=== PATIENT | female | born 1950 | race Caucasian/White ===

== ENCOUNTER → 2017-10-04 | Outpatient (CLI) | payer BC | LOC: RAD 10:12 | PROVIDERS: ATTEND Registered Nurse | DX: G20 Parkinson's disease (principal); R13.10 Dysphagia, unspecified | CPT/HCPCS: 74230 ==

== ENCOUNTER → 2017-10-05 | Outpatient (CLI) | payer BC ==
[~2017-10-05] MED LIST: GADOBUTROL 7.5 MMOL/7.5 ML VIAL ONE
== END | disposition home or self-care (01) ==
LOC: CFH 09:45
PROVIDERS: ATTEND Registered Nurse
DX: G20 Parkinson's disease (principal); M48.02 Spinal stenosis, cervical region; M54.2 Cervicalgia
CPT/HCPCS: 70553; 72156; 82565; A9585

== ENCOUNTER → 2017-12-20 | Outpatient (CLI) | payer BC | END | disposition home or self-care (01) | LOC: CFH 15:59 | PROVIDERS: ATTEND Internal Medicine | DX: R63.4 Abnormal weight loss (principal); Z72.0 Tobacco use | CPT/HCPCS: 71046 ==

== ENCOUNTER → 2018-01-05 | Outpatient (CLI) | payer BC | END | disposition home or self-care (01) | LOC: CFH 14:05 | PROVIDERS: ATTEND Orthopaedic Surgery | DX: M47.892 Other spondylosis, cervical region (principal); M85.88 Other specified disorders of bone density and structure, other site | CPT/HCPCS: 72050 ==

== ENCOUNTER → 2018-04-19 | Outpatient (CLI) | payer BC | END | disposition home or self-care (01) | LOC: CFH 13:23 | PROVIDERS: ATTEND Psychiatry & Neurology Neurology | DX: I65.02 Occlusion and stenosis of left vertebral artery (principal); I77.1 Stricture of artery; I63.9 Cerebral infarction, unspecified | CPT/HCPCS: 70544; 70549; 82565; A9585 ==

== ENCOUNTER 2019-09-01 09:42 | Emergency (ER) | payer BC, MEDICARE ==
[~2019-09-01] VITALS: Ht 170.2 cm; Wt 67.0 kg
[~2019-09-01 09:42] MED LIST changes: +ACET325T26 PO; +BACL20TA PO; +CARB1TAB46 PO; +DOCU100C33 PO; +DOXE10CA PO; +ENAL5TAB PO; -GADOBUTROL 7.5 MMOL/7.5 ML VIAL ONE; +IPRA3AMP30 NPPB; +MELA3TAB56 PO; +POLY17PO5 PO; +SAFI50TA PO
[2019-09-01 09:45] VITALS: BP 113/70
[2019-09-01 10:57] LABS: BASOPHILS # (AUTO) 0.03 x10^3/uL (0-0.1); BASOPHILS % (AUTO) 1 % (0-1); EOSINOPHILS # (AUTO) 0.07 x10^3/uL (0-0.4); EOSINOPHILS % (AUTO) 1 % (1-7); LYMPHOCYTES # (AUTO) 1.27 x10^3/uL (1-3.4); LYMPHOCYTES % (AUTO) 25 % (22-44); MD NO; MEAN CORPUSCULAR HGB CONC 33.1 g/dL (32.4-35.8); MEAN CORPUSCULAR VOLUME 87.5 fL (80-100); MEAN PLATELET VOLUME 8.4 fL (7.4-10.4); MONOCYTES # (AUTO) 0.33 x10^3/uL (0.2-0.8); MONOCYTES % (AUTO) 7 % (2-9); NEUTROPHILS # (AUTO) 3.34 x10^3/uL (1.8-6.8); NEUTROPHILS % (AUTO) 66 % (42-75); PLATELET COUNT 206 x10^3/uL (130-400); RED BLOOD COUNT 4.89 x10^6/uL (3.82-5.3); RED CELL DISTRIBUTION WIDTH 15.7 % (9.6-15.2)
[2019-09-01 10:58] LABS: ALBUMIN 3.6 g/dL (3.4-5.0); ANION GAP 5 mmol/L (5-15); CHLORIDE 109 mmol/L (98-107)
--- NOTE | 2019-09-01 11:27 | NUR ---
TASK RN: FIRST CONTACT WITH PT. Patient/Caregiver given discharge instructions and they have confirmed that they understand the instructions. Patient ambulatory with steady gait. PT LEFT WITH ALL PERSONAL BELONGINGS. DAUGHTER WITH PT.
== END 2019-09-01 11:29 | disposition home or self-care (01) ==
LOC: ED 10:36
DX: Z09 Encounter for follow-up examination after completed treatment for conditions other than malignant neoplasm (principal); R10.9 Unspecified abdominal pain; G20 Parkinson's disease; Z93.1 Gastrostomy status
CPT/HCPCS: 36415; 80048; 82040; 85025; 99283

== ENCOUNTER → 2019-11-30 | Outpatient (CLI) | payer BC, MEDICARE ==
[~2019-11-30] MED LIST changes: +MELA3TAB31 PO; -MELA3TAB56 PO
== END | disposition home or self-care (01) ==
LOC: CFH 11:48
PROVIDERS: ATTEND Internal Medicine
DX: M54.9 Dorsalgia, unspecified (principal)
CPT/HCPCS: 71111

== ENCOUNTER 2019-12-18 11:41 | Outpatient (CLI) | payer BC, MEDICARE | END 2019-12-18 23:59 | disposition home or self-care (01) | LOC: RAD 11:41 | PROVIDERS: ATTEND Internal Medicine | DX: K22.8 Other specified diseases of esophagus (principal); G20 Parkinson's disease; R13.10 Dysphagia, unspecified | CPT/HCPCS: 74220; 74230 ==

== ENCOUNTER → 2020-02-08 | Outpatient (CLI) | payer BC, MEDICARE ==
[~2020-02-08] MED LIST changes: -ENAL5TAB PO; +ENAL5TAB10 PO; +OMNIPAQUE 350 MG/ML, 100ML BOTTLE ONE
== END | disposition home or self-care (01) ==
LOC: CFH 14:27
PROVIDERS: ATTEND Otolaryngology
DX: M50.30 Other cervical disc degeneration, unspecified cervical region (principal); M40.292 Other kyphosis, cervical region; I77.1 Stricture of artery; M26.609 Unspecified temporomandibular joint disorder, unspecified side
CPT/HCPCS: 70491; Q9967